=== PATIENT | male | born 1940 | race Caucasian/White ===

== ENCOUNTER 2017-01-13 12:42 | Inpatient (IN) | payer MEDICARE, OTHER ==
[~2017-01-13] VITALS: Ht 180.3 cm; Wt 69.1 kg
[2017-01-13 14:15] LABS: HEMOGLOBIN 14.4 gm/dl (14.0-17.5); RED BLOOD COUNT 4.46 M/UL (4.20-5.50); WHITE BLOOD COUNT 12.4 K/UL (4.5-11.0)
[2017-01-13] MEDS ORDERED: VENTOLIN/PROVE0.5 ML NEB (20:55)
[2017-01-13] MEDS ORDERED: COREG25 MG PO (20:56)
[2017-01-13] MEDS ORDERED: NORVASC 5 MG TAB5 MG PO (20:56)
[2017-01-13] MEDS ORDERED: COZAAR100 MG PO (20:57)
[2017-01-13] MEDS ORDERED: ELIQUIS5 MG PO (20:57)
[2017-01-13] MEDS ORDERED: CLONAZEPAM0.5 MG PO (20:58)
[2017-01-13] MEDS ORDERED: NORCO 10-325 T1 EACH PO (21:00)
[2017-01-13] MEDS ORDERED: ISOSORBIDE MONO30 MG PO (21:01)
[2017-01-13] MEDS ORDERED: LIPITOR TAB 2020 MG PO (21:01)
[2017-01-13] MEDS ORDERED: ZESTRIL10 MG PO (21:01)
[2017-01-13] MEDS ORDERED: PAROXETINE HCL20 MG PO (21:02)
[2017-01-13] MEDS ORDERED: PROAIR HFA8.5 GM INH (21:03)
[2017-01-13] MEDS ORDERED: SYMBICORT 160-1 INHA INH (21:04)
[2017-01-14 05:19] LABS: HEMOGLOBIN 13.5 gm/dl (14.0-17.5); RED BLOOD COUNT 4.19 M/UL (4.20-5.50); WHITE BLOOD COUNT 11.4 K/UL (4.5-11.0)
[2017-01-15 04:47] LABS: RED BLOOD COUNT 4.07 M/UL (4.20-5.50)
[2017-01-15 04:53] LABS: WHITE BLOOD COUNT 16.3 K/UL (4.5-11.0)
[2017-01-15 05:14] LABS: BUN/CREATININE RATIO 21 (0-10)
[2017-01-16 05:21] LABS: HEMOGLOBIN 12.9 gm/dl (14.0-17.5); RED BLOOD COUNT 4.08 M/UL (4.20-5.50); WHITE BLOOD COUNT 12.6 K/UL (4.5-11.0)
[2017-01-16 05:35] LABS: BUN/CREATININE RATIO 25 (0-10)
[2017-01-17 04:41] LABS: HEMOGLOBIN 13.3 gm/dl (14.0-17.5); RED BLOOD COUNT 4.15 M/UL (4.20-5.50); WHITE BLOOD COUNT 12.7 K/UL (4.5-11.0)
[2017-01-17 05:05] LABS: BUN/CREATININE RATIO 26 (0-10)
[2017-01-17] MEDS ORDERED: MEDROL DOSEPAK 24 MG PO (15:20)
[2017-01-17] MEDS ORDERED: ASPIRIN CHEWABL81 MG PO (15:24)
== END 2017-01-17 17:07 | disposition home or self-care (01) | DRG 291 ==
LOC: ER1 12:42 → MED SURG 4 16:05 → ZEROF 16:05 → MED SURG 4 19:35
PROVIDERS: Emergency Medicine; Internal Medicine; ADMIT Internal Medicine
PROC: 3E0234Z Introduction of Serum, Toxoid and Vaccine into Muscle, Percutaneous Approach (ICD-10-PCS; principal; 2017-01-17)
DX: I13.0 Hypertensive heart and chronic kidney disease with heart failure and stage 1 through stage 4 chronic kidney disease, or unspecified chronic kidney disease (principal); I50.23 Acute on chronic systolic (congestive) heart failure; J96.00 Acute respiratory failure, unspecified whether with hypoxia or hypercapnia; J44.1 Chronic obstructive pulmonary disease with (acute) exacerbation; I48.92 Unspecified atrial flutter; I25.810 Atherosclerosis of coronary artery bypass graft(s) without angina pectoris; T82.855A Stenosis of coronary artery stent, initial encounter; N18.3 Chronic kidney disease, stage 3 (moderate); E78.5 Hyperlipidemia, unspecified; Z23 Encounter for immunization; I27.2 Other secondary pulmonary hypertension; I08.3 Combined rheumatic disorders of mitral, aortic and tricuspid valves; I25.10 Atherosclerotic heart disease of native coronary artery without angina pectoris; I25.82 Chronic total occlusion of coronary artery; I70.203 Unspecified atherosclerosis of native arteries of extremities, bilateral legs; I48.2 Chronic atrial fibrillation; R00.0 Tachycardia, unspecified; I45.81 Long QT syndrome; R63.4 Abnormal weight loss; Y71.2 Prosthetic and other implants, materials and accessory cardiovascular devices associated with adverse incidents; F17.210 Nicotine dependence, cigarettes, uncomplicated; I65.29 Occlusion and stenosis of unspecified carotid artery; G89.29 Other chronic pain; M54.5 Low back pain; F03.90 Unspecified dementia, unspecified severity, without behavioral disturbance, psychotic disturbance, mood disturbance, and anxiety; Z91.19 Patient's noncompliance with other medical treatment and regimen; Z72.3 Lack of physical exercise; Z68.20 Body mass index [BMI] 20.0-20.9, adult; Z79.01 Long term (current) use of anticoagulants; Z79.51 Long term (current) use of inhaled steroids; Z79.891 Long term (current) use of opiate analgesic; Z79.899 Other long term (current) drug therapy; Z98.890 Other specified postprocedural states; Z83.3 Family history of diabetes mellitus
CPT/HCPCS: ECHO; 36415; 71010; 71020; 80048; 80053; 82550; 82553; 83540; 83605; 83735; 83874; 83880; 84100; 84439; 84443; 84481; 84484; 85025; 85027; 87040; 87070; 87205; 87278; 87899; 93005; 93306; 94640; 94664; 96374; 96375; 99291; J0696; J1940; J2270; J2920; J2930; J7030; J7040; J7050; Q0163